=== PATIENT | female | born 1945 | race Caucasian/White ===

== ENCOUNTER 2020-03-25 09:54 | Outpatient (CLI) | payer MEDICARE, SELFPAY ==
[2020-03-25 11:09] LABS: Alanine Aminotransferase 24 U/L (14-59); Alkaline Phosphatase 40 U/L (46-116); Anion Gap 12.4 mmol/L (7-16); Aspartate Amino Transferase 21 U/L (15-37); Bilirubin,Total 0.6 mg/dL (0.00-1.00); Blood Urea Nitrogen 14 mg/dL (7-18); Calcium 9.1 mg/dL (8.5-10.1); Carbon Dioxide 26 mmol/L (21-32); Chloride 102 mmol/L (98-108); Cholesterol 200 mg/dL (0-200); Estimated Glomerular Filt Rate > 60; Glucose 87 mg/dL (70-99); HDL Direct 63 mg/dL (40-60); LDL Cholesterol Calculated 110 mg/dL (<130); Osmolality Calculated 281 mOsm/kg (285-295); Potassium 4.4 mmol/L (3.5-5.1); Sodium 136 mmol/L (136-145); Total Protein 7.4 g/dL (6.4-8.2); Triglycerides 135 mg/dL (0-150)
== END 2020-03-25 09:55 | disposition home or self-care (01) ==
PROVIDERS: PCP Internal Medicine; Visit Provider Internal Medicine Cardiovascular Disease
DX: E78.5 Hyperlipidemia, unspecified (principal)
CPT/HCPCS: 36415; 80053; 80061

== ENCOUNTER 2021-11-19 08:01 | Outpatient (CLI) | payer MEDICARE, SELFPAY ==
[2021-11-19 08:55] LABS: Alanine Aminotransferase 21 U/L (14-59); Alkaline Phosphatase 35 U/L (46-116); Anion Gap 13 mmol/L (8-16); Aspartate Amino Transferase 14 U/L (15-37); Bilirubin,Total 0.5 mg/dL (0.00-1.00); Blood Urea Nitrogen 18 mg/dL (7-18); Calcium 9.5 mg/dL (8.5-10.1); Carbon Dioxide 26 mmol/L (21-32); Chloride 103 mmol/L (98-108); Cholesterol 168 mg/dL (0-200); Estimated Glomerular Filt Rate > 60; Glucose 91 mg/dL (70-99); HDL Direct 66 mg/dL (40-60); LDL Cholesterol Calculated 86 mg/dL (<130); Osmolality Calculated 295 mOsm/kg (285-295); Potassium 4.5 mmol/L (3.5-5.1); Sodium 142 mmol/L (136-145); Total Protein 7.3 g/dL (6.4-8.2); Triglycerides 80 mg/dL (0-150)
== END 2021-11-19 08:02 | disposition home or self-care (01) ==
LOC: CHSLAB 08:04
PROVIDERS: PCP Internal Medicine; Visit Provider Internal Medicine Cardiovascular Disease
DX: E78.5 Hyperlipidemia, unspecified (principal)
CPT/HCPCS: 36415; 80053; 80061

== ENCOUNTER 2022-12-17 08:03 | Outpatient (CLI) | payer MEDICARE, SELFPAY ==
[2022-12-17 09:10] LABS: Alanine Aminotransferase 22 U/L (14-59); Alkaline Phosphatase 36 U/L (46-116); Anion Gap 10 mmol/L (8-16); Aspartate Amino Transferase 19 U/L (15-37); Bilirubin,Total 0.5 mg/dL (0.00-1.00); Blood Urea Nitrogen 11 mg/dL (7-18); Calcium 9.5 mg/dL (8.5-10.1); Carbon Dioxide 28 mmol/L (21-32); Chloride 107 mmol/L (98-108); Cholesterol 167 mg/dL (0-200); Estimated Glomerular Filt Rate > 60; Glucose 86 mg/dL (70-99); HDL Direct 66 mg/dL (40-60); LDL Cholesterol Calculated 82 mg/dL (<130); Osmolality Calculated 298 mOsm/kg (285-295); Potassium 4.4 mmol/L (3.5-5.1); Sodium 145 mmol/L (136-145); Total Protein 7.4 g/dL (6.4-8.2); Triglycerides 95 mg/dL (0-150)
== END 2022-12-17 08:04 | disposition home or self-care (01) ==
LOC: CHSLAB 08:04
PROVIDERS: PCP Internal Medicine; Visit Provider Internal Medicine Cardiovascular Disease
DX: E78.5 Hyperlipidemia, unspecified (principal)
CPT/HCPCS: 36415; 80053; 80061

== ENCOUNTER 2023-12-17 12:06 | Emergency (ER) | payer MEDICARE, SELFPAY ==
[2023-12-17] VITALS (9 sets, daily range): BP systolic 102–140; BP diastolic 60–73; PULSE 72–94; RESP 16–18; TEMP 37.2–37.4; O2SAT 96–98
--- NOTE | ~2023-12-17 | XR_ITS ---
EXAMINATION: XR chest 2V DATE: 12/17/2023 13:57 INDICATION: Weakness TECHNIQUE: frontal and lateral views of the chest were obtained. COMPARISON: None FINDINGS: The lungs are clear with no focal airspace opacities, pulmonary edema, pleural effusion or pneumothor ax. The cardiomediastinal silhouette is normal. Moderate thoracic spondylosis with mild anterior wedg ing of a few mid thoracic vertebral bodies. IMPRESSION: 1. No acute cardiopulmonary disease. Reviewed, dictated and finalized at location A.
--- NOTE | ~2023-12-17 | CT_ITS ---
EXAMINATION: CT brain wo con DATE: 12/17/2023 12:34 INDICATION: Weakness. Headache. TECHNIQUE: Computed tomography (CT) of the head was performed without intravenous contrast. The mA wa s adjusted according to patient size. Iterative reconstruction technique was employed. The dose-lengt h product was 605.33 mGy-cm. COMPARISON: None FINDINGS: There are scattered areas of low attenuation in the cerebral white matter. There is no intr acranial hemorrhage, acute infarction, or abnormal intracranial mass lesion. The ventricles are valentín l in size. There is mild mucosal thickening in the paranasal sinuses. The mastoid air cells are valentín l. IMPRESSION: 1. Extensive nonspecific cerebral white matter disease, which likely represents chronic small vessel ischemic disease. Reviewed, dictated and finalized at location A.
--- NOTE | 2023-12-17 12:10 | ECG_ITS ---
Measurements Intervals [place] Rate: 90 P: 73 GA: 140 QRS: 70 QRSD: 86 T: 75 QT: 363 QTc: 445 Interpretive Statements SINUS RHYTHM INCOMPLETE RIGHT BUNDLE BRANCH BLOCK NO PREVIOUS ECG AVAILABLE FOR COMPARISON Electronically Signed On 12-18-2023 13:16:13 CDT by Jesus Becker M.D.
--- NOTE | 2023-12-17 12:19 | ED.WEAKNESS ---
HPI - Weakness General Chief complaint: Weakness Stated complaint: weakness Time Seen by Provider: 12/17/23 12:09 Source: patient Mode of arrival: ambulatory Limitations: no limitations History of Present Illness HPI Narrative: patient is a 78-year-old female with generalized weakness for the past 2 weeks. She has also had worsening of some shortness of breath upon exertion. She has some dysuria. MD Complaint: generalized weakness Onset (ago): week(s) (2) Duration: constant and progressively worsening Location: generalized Migration: none Severity: moderate Severity scale (1-10): 5 Relieving factors: none Exacerbating factors: medication ( Patient also broke out with a rash on her forehead after starting new blood pressure medicine) and movement Context: new medication ( she stop the blood pressure medicine at this time 4 days ago) Associated symptoms: dysuria and shortness of breath Related Data Home Medications Medication Instructions Recorded Confirmed aspirin 81 mg tablet,delayed 81 mg PO DAILY 08/18/19 12/17/23 release (Adult Low Dose Aspirin) nitroglycerin 0.4 mg sublingual 0.4 mg sublingual Q5M PRN Chest 08/18/19 12/17/23 tablet Pain vitamin E (dl, acetate) 45 mg (100 100 unit PO DAILY 08/18/19 12/17/23 unit) capsule omega-3 fatty acids 1,000 mg 1,000 mg PO BID 08/21/19 12/17/23 capsule (Fish Oil Concentrate) Allergies Allergy/AdvReac Type Severity Reaction Status Date / Time No Known Drug Allergies Allergy Unknown Other Verified 12/17/23 12:08 Review of Systems Review of Systems: All systems reviewed & are unremarkable except as noted in HPI and below Constitutional: Constitutional: Reports no additional constitutional complaints Eyes: Eyes: Reports no additional eye complaints ENT: Reports system reviewed and no additional complaints, except as documented Cardiovascular: Cardiovascular: Reports no additional cardiovascular complaints Respiratory: Respiratory: Reports no additional respiratory complaints Gastrointestinal: Gastrointestinal: Reports no additional gastrointestinal complaints Genitourinary: Genitourinary: Reports no additional female genitourinary complaints Musculoskeletal: Musculoskeletal: Reports no additional musculoskeletal complaints Integumentary/Breasts: Skin/Breast: Reports system reviewed and no additional complaints, except as docu Neurologic: Reports system reviewed and no additional complaints, except as documented Psychiatric: Psychiatric: Reports no additional psychiatric complaints Endocrine: Endocrine: Reports no additional endocrine complaints Hematologic/Lymphatic: Hematologic/Lymphatic: Reports no additional hematologic/lymphatic complaints Allergic/Immunologic: Allergic/Immunologic: Reports no additional allergic/immunologic complaints [facility] Past Medical History Medical History CAD in [place] artery Dyslipidemia Essential hypertension Surgical History Surgical History H/O cardiac catheterization H/O: hysterectomy History of bunionectomy Hx of cholecystectomy Family History Family History Father Hypertension Family history of cardiovascular disease Family history of malignant neoplasm Mother Hypertension Family history of cardiovascular disease Family history of malignant neoplasm Social History Social History Smoking status: Never smoker Alcohol intake: current Exam Const: General: healthy appearing Nutritional Appearance: well nourished Orientation/consciousness: patient oriented x3 HENMT: Head: normal to inspection Ears: external ears normal Face/Nose/Sinus: Normal external nose present Eyes: Conjunctivae: conjunctivae normal Pupils: Equal, round and reactive pupils present EOM: EOMs intact b
--- NOTE | 2023-12-17 12:41 | PC.NURSE ---
ERP at bedside for initial assessment
[2023-12-17 13:12] LABS: Basophils Absolute Auto 0.03 K/mm3 (0.00-0.10); Basophils Percent Auto 0.2 % (0.0-1.0); Hematocrit 31.1 % (35.0-42.0); Hemoglobin 10.6 g/dL (11.7-13.8); Immature Granulocyte Percent A 0.8 % (0.0-0.0); Lymphocytes Absolute Auto 1.21 K/mm3 (1.10-4.50); Lymphocytes Percent Auto 9.6 % (18.0-42.0); Mean Corpuscular HGB Conc 34.1 g/dL (32-36); Mean Corpuscular Hemoglobin 30.8 pg (27.0-31.0); Mean Corpuscular Volume 90.4 fL (78.0-102.0); Mean Platelet Volume 8.8 fl (9.2-11.8); Monocytes Absolute Auto 1.23 K/mm3 (0.10-0.90); Monocytes Percent Auto 9.7 % (2.0-11.0); Neutrophils Absolute Auto 10.09 K/mm3 (1.70-7.20); Neutrophils Percent Auto 79.7 % (50.0-70.0); Platelet Count Result 444 K/mm3 (150-420); Red Blood Count 3.44 M/mm3 (4.20-5.40); Red Cell Distribution Width 13.4 % (11.6-14.4); White Blood Count 12.7 K/mm3 (4.8-10.8)
[2023-12-17 13:34] LABS: Lactic Acid Reflex 1.1 mmol/L (0.4-2.0)
--- NOTE | 2023-12-17 13:37 | PC.NURSE ---
Patient taken down to bathroom, patient unable to urinate at this time. provided two glasses of water. will try again in a few minutes.
[2023-12-17 13:39] LABS: Alanine Aminotransferase 11 U/L (14-59); Albumin Level 2.9 g/dL (3.4-5.0); Alkaline Phosphatase 40 U/L (46-116); Anion Gap 14 mmol/L (4-12); Aspartate Amino Transferase 23 U/L (15-37); Bilirubin,Total 0.4 mg/dL (0.00-1.00); Blood Urea Nitrogen 14 mg/dL (7-18); Calcium 8.9 mg/dL (8.5-10.1); Carbon Dioxide 22 mmol/L (21-32); Chloride 93 mmol/L (98-108); Estimated CRCL calculation 44 ml/min; Estimated Glomerular Filt Rate > 60; Glucose 103 mg/dL (70-99); Magnesium 1.9 mg/dL (1.8-2.4); NT Pro B Type Natriuretic Pept 1551 pg/mL (0-450); Osmolality Calculated 268 mOsm/kg (285-295); Potassium 3.9 mmol/L (3.5-5.1); Sodium 129 mmol/L (136-145); Thyroid Stimulating Hormone 0.38 uIU/mL (0.36-3.74); Total Protein 7.4 g/dL (6.4-8.2); Troponin I 12.9 ng/L (0.00-60.4)
--- NOTE | 2023-12-17 14:28 | PC.NURSE ---
Patient taken to bathroom, urine obtained at this time and taken to lab.
[2023-12-17 14:30] LABS: Bilirubin Urine Negative (Negative); Blood Urine 1+ (Negative); Color Urine Yellow (Yellow); Glucose Urine UA Negative (Negative); Ketones Urine Negative (Negative); Leukocyte Esterase Ur 1+ LEU/UL (Negative); Nitrate Urine Positive (Negative); Protein Urine 1+ (Negative); Specific Grav Ur 1.025 (1.010-1.020); Urobilinogen Urine 0.2 mg/dL (0.2-1.0)
[2023-12-17 14:41] LABS: Add Urine Microscopic? YES; Appearance Urine Cloudy (Clear); Squamous Epithelial Cell Urine Few /hpf (Few)
[2023-12-17 14:42] LABS: Bacteria Urine 4+ /hpf
--- NOTE | 2023-12-17 15:00 | PC.NURSE ---
discharge on hold for chest xray results. Radiology states that there is an issue getting the scan to cross over to radiologist. they are aware of the situation.
[2023-12-17] MEDS: CIPROFLOXACIN 500 MG TAB PO (15:11)
--- NOTE | 2023-12-20 13:00 | PC.NURSE ---
FINAL URINE CULTURE REPORT; Patient discharged on cipro, culture susceptible, no change in treatment or further action needed.
== END 2023-12-17 15:54 | disposition home or self-care (01) ==
PROVIDERS: Emergency Provider Emergency Medicine; PCP Internal Medicine
DX: N39.0 Urinary tract infection, site not specified (principal); R53.1 Weakness; R21 Rash and other nonspecific skin eruption; I25.10 Atherosclerotic heart disease of native coronary artery without angina pectoris; I10 Essential (primary) hypertension; E78.5 Hyperlipidemia, unspecified; Z79.82 Long term (current) use of aspirin
CPT/HCPCS: 36415; 70450; 71046; 80053; 81001; 83605; 83735; 83880; 84443; 84484; 85025; 87077; 87086; 87088; 87186; 93005; 99284; A9270

== ENCOUNTER 2023-12-22 15:08 | Emergency (ER) | payer MEDICARE, SELFPAY ==
[2023-12-22] VITALS (41 sets, daily range): BP systolic 130–168; BP diastolic 69–92; PULSE 14–88; RESP 14–79; TEMP 36.2–36.9; O2SAT 96–99
--- NOTE | ~2023-12-22 | XR_ITS ---
EXAMINATION: XR chest 1V portable 12/22/2023 16:13 INDICATION: Weakness. Loss of appetite. PROCEDURE: AP portable chest COMPARISON: No prior studies for comparison. FINDINGS: The lungs are clear. The cardiomediastinal silhouette is within normal limits. There are no pleural effusions. There is no pneumothorax suspected. IMPRESSION: 1: NO ACUTE CARDIOPULMONARY DISEASE. Reviewed, dictated and finalized at location A.
--- NOTE | ~2023-12-22 | XR_ITS ---
XR abdomen/kub 1V 12/22/2023 16:13 INDICATION: Constipation TECHNIQUE: KUB COMPARISON: None FINDINGS: Bowel gas pattern is normal. Moderate colonic fecal loading. There are pelvic phleboliths. There are cholecystectomy clips. There is no evidence of free air, mass, organomegaly, ascites or obs truction. No abnormal calculi are seen. The bones appear intact. Moderate lumbar spondylosis. IMPRESSION: 1: No acute abdominal abnormality identified. Reviewed, dictated and finalized at location A.
--- NOTE | ~2023-12-22 | CT_ITS ---
EXAMINATION: CT chest abdomen pelvis wo con DATE: 12/22/2023 17:27 CDT INDICATION: Generalized weakness. Elevated white blood cell count. TECHNIQUE: Computed tomography (CT) of the chest, abdomen, and pelvis was performed without intraveno us contrast. The dose-length product was 440.12 mGy-cm. Automated exposure control and iterative taniya nstruction technique were employed. COMPARISON: None FINDINGS: CHEST CT: Heart size normal. No thoracic lymphadenopathy. Mild atherosclerosis. No significant pleural or peric ardial effusion. There are a few small calcified granulomas of the lungs. There are additional noncal cified pulmonary nodules measuring 3 mm or less, likely benign. No endobronchial lesions. There is le ft lower lobe atelectasis/scarring. No focal pneumonia. No endobronchial lesions. No pneumothorax. ABDOMEN/PELVIS CT: Status post cholecystectomy. The spleen, pancreas, adrenal glands and kidneys are unremarkable. No hy dronephrosis. Nonobstructive bowel gas pattern. Status post cholecystectomy. Mild bladder wall thicke sarah. There is subtle infiltration of the anterior perivesical fat. Consider cystitis in the appropri ate clinical setting. Mild lower thoracic and lumbar spondylosis. No acute osseous abnormality. IMPRESSION: 1. Mild bladder wall thickening with subtle fatty infiltration of the anterior perivesical fat. Clini lucretia correlate for cystitis. Reviewed, dictated and finalized at location A. IMPRESSION: 1. Mild bladder wall thickening with subtle fatty infiltration of the anterior perivesical fat. Clinically correlate for cystitis.
--- NOTE | ~2023-12-22 | CT_ITS ---
EXAMINATION: CT cervical spine wo con DATE: 12/22/2023 16:13 INDICATION: Head injury. TECHNIQUE: Computed tomography (CT) of the cervical spine was performed without intravenous contrast. Automated exposure control and iterative reconstruction technique were employed. The dose-length pro duct was 208.52 mGy-cm. COMPARISON: None FINDINGS: There is mild scarring at the lung apices. Bone alignment is normal. Vertebral body heights are normal. There is severely decreased disc height at C3-C4, moderately decreased disc height at C4 -C5, and severely decreased disc height at C5-C6 and C6-C7. The following disc levels are specificall y discussed: C2-C3: There is no uncovertebral joint osteoarthritis. There is severe right and moderate left facet joint osteoarthritis. There is mild right neural foraminal stenosis. There is no central canal stenos is. C3-C4: There is severe bilateral uncovertebral joint osteoarthritis. There is severe right and modera te left facet joint osteoarthritis. There is moderate right and mild left neural foraminal stenosis. There is mild central canal stenosis. C4-C5: There is ankylosis of the uncovertebral joints with mild hypertrophy. There is ankylosis of th e facet joints with severe hypertrophy. There is mild right neural foraminal stenosis. There is no ce ntral canal stenosis. C5-C6: There is severe bilateral uncovertebral joint osteoarthritis. There is severe bilateral facet joint osteoarthritis. There is mild bilateral neural foraminal stenosis. There is mild central canal stenosis. C6-C7: There is severe bilateral uncovertebral joint osteoarthritis. There is moderate right and porsha re left facet joint osteoarthritis. There is mild bilateral neural foraminal stenosis. There is mild central canal stenosis. C7-T1: There is no uncovertebral joint osteoarthritis. There is severe bilateral facet joint osteoart hritis. There is mild bilateral neural foraminal stenosis. There is no central canal stenosis. IMPRESSION: 1. No fracture. 2. Severe cervical spondylosis. Reviewed, dictated and finalized at location A.
--- NOTE | ~2023-12-22 | CT_ITS ---
EXAMINATION: CT brain wo con DATE: 12/22/2023 16:13 INDICATION: Head injury. TECHNIQUE: Computed tomography (CT) of the head was performed without intravenous contrast. The mA wa s adjusted according to patient size. Iterative reconstruction technique was employed. The dose-lengt h product was 605.33 mGy-cm. COMPARISON: Head CT 12/17/2023 FINDINGS: There are scattered areas of low attenuation in the cerebral white matter. There is no intr acranial hemorrhage, acute infarction, or abnormal intracranial mass lesion. The ventricles are valentín l in size. There are likely changes of ocular lens replacement surgeries. There is mild mucosal thick ening in the paranasal sinuses. The mastoid air cells are normal. IMPRESSION: 1. Stable extensive nonspecific cerebral white matter disease, which likely represents chronic small vessel ischemic disease. Reviewed, dictated and finalized at location A. IMPRESSION: 1. Stable extensive nonspecific cerebral white matter disease, which likely rep resents chronic small vessel ischemic disease.
--- NOTE | 2023-12-22 15:19 | ED.WEAKNESS ---
HPI - Weakness General Chief complaint: Weakness Stated complaint: weakness Time Seen by Provider: 12/22/23 15:14 Source: patient Mode of arrival: ambulatory Limitations: no limitations History of Present Illness HPI Narrative: 78-year-old female with a history of hypertension, dyslipidemia coronary artery disease status post multiple stents on February of 2018, EF of 50% with diastolic dysfunction presented to the ER on 12/17/1999 24 for generalized weakness and urinary tract infection. She was noted urinary tract infection and treated with Cipro. In addition her labs revealed hyponatremia with a sodium of 129 and anemia. The patient presents today with -- ongoing weakness which she has had for the past 3 weeks. The patient is unable to ambulate. -- On 12/17/2023 the patient stood up and fell down secondary to weakness. In the process she hit her head. No loss of consciousness. No obvious injuries noted. -- Constipation for the past 5 days. No abdominal pain. No nausea /vomiting. -- shortness of breath on exertion -- body aches No chest pain MD Complaint: generalized weakness Onset (ago): week(s) ( 3 weeks) Duration: constant Location: generalized Migration: none Severity: moderate Relieving factors: none Exacerbating factors: none Context: new medication Associated symptoms: denies other symptoms, headaches and shortness of breath Related Data Home Medications Medication Instructions Recorded Confirmed aspirin 81 mg tablet,delayed 81 mg PO DAILY 08/18/19 12/22/23 release (Adult Low Dose Aspirin) vitamin E (dl, acetate) 45 mg (100 100 unit PO DAILY 08/18/19 12/22/23 unit) capsule omega-3 fatty acids 1,000 mg 1,000 mg PO BID 08/21/19 12/22/23 capsule (Fish Oil Concentrate) Allergies Allergy/AdvReac Type Severity Reaction Status Date / Time No Known Drug Allergies Allergy Unknown Other Verified 12/22/23 15:23 Review of Systems Review of Systems: All systems reviewed & are unremarkable except as noted in HPI and below Constitutional: Constitutional: Reports as per HPI and Reports no additional constitutional complaints Eyes: Eyes: Reports as per HPI and Reports no additional eye complaints ENT: Reports system reviewed and no additional complaints, except as documented and Reports as per HPI Cardiovascular: Cardiovascular: Reports as per HPI and Reports no additional cardiovascular complaints Respiratory: Respiratory: Reports as per HPI, Reports no additional respiratory complaints and Reports dyspnea Gastrointestinal: Gastrointestinal: Reports as per HPI and Reports no additional gastrointestinal complaints Genitourinary: Genitourinary: Reports no additional female genitourinary complaints and Reports as per HPI Musculoskeletal: Musculoskeletal: Reports as per HPI, Reports back pain and Reports myalgias Integumentary/Breasts: Skin/Breast: Reports system reviewed and no additional complaints, except as docu and Reports as per HPI Neurologic: Reports system reviewed and no additional complaints, except as documented and Reports as per HPI Psychiatric: Psychiatric: Reports no additional psychiatric complaints and Reports as per HPI Endocrine: Endocrine: Reports no additional endocrine complaints and Reports as per HPI Hematologic/Lymphatic: Hematologic/Lymphatic: Reports no additional hematologic/lymphatic complaints and Reports as per HPI Allergic/Immunologic: Allergic/Immunologic: Reports no additional allergic/immunologic complaints and Reports as per HPI PMFSH Past Medical History Medical History CAD in [place] artery Dyslipidemia Essential hypertension Surgical History Surgical History H/O cardiac catheterization H/O: hysterectomy History of bunionectomy Hx of cholecystectomy Family History Family History Father Hy
--- NOTE | 2023-12-22 15:48 | ECG_ITS ---
Measurements Intervals [place] Rate: 72 P: 75 WI: 142 QRS: 64 QRSD: 89 T: 77 QT: 409 Avg RR 832 QTc: 433 QTcB 448 QTcF 434 Interpretive Statements SINUS RHYTHM NORMAL ECG SEE SCANNED COPY FOR SIGNATURE MTDD
[2023-12-22 15:55] LABS: Hematocrit 27.9 % (35.0-42.0); Hemoglobin 9.6 g/dL (11.7-13.8); Immature Platelet Fraction Pct 0.9 % (1.0-7.0); Mean Corpuscular HGB Conc 34.4 g/dL (32-36); Mean Corpuscular Hemoglobin 30.5 pg (27.0-31.0); Mean Corpuscular Volume 88.6 fL (78.0-102.0); Mean Platelet Volume 8.5 fl (9.2-11.8); Platelet Count Result 594 K/mm3 (150-420); Red Blood Count 3.15 M/mm3 (4.20-5.40); Red Cell Distribution Width 13.2 % (11.6-14.4)
[2023-12-22 16:09] LABS: INR 1.4; Partial Thromboplastin Time 35.9 Sec (23.9-30.70); Prothrombin Time 15.2 Seconds (9.50-12.1)
[2023-12-22 16:20] LABS: Alanine Aminotransferase 131 U/L (14-59); Albumin Level 2.4 g/dL (3.4-5.0); Alkaline Phosphatase 105 U/L (46-116); Anion Gap 13 mmol/L (4-12); Aspartate Amino Transferase 72 U/L (15-37); Bilirubin,Total 0.5 mg/dL (0.00-1.00); Blood Urea Nitrogen 56 mg/dL (7-18); Calcium 8.7 mg/dL (8.5-10.1); Carbon Dioxide 22 mmol/L (21-32); Chloride 87 mmol/L (98-108); Creatine Kinase 79 U/L (26-192); Estimated CRCL calculation 9 ml/min; Estimated Glomerular Filt Rate 11; Glucose 102 mg/dL (70-99); Lipase 184 U/L (16-77); NT Pro B Type Natriuretic Pept 1760 pg/mL (0-450); Osmolality Calculated 269 mOsm/kg (285-295); Potassium 4.8 mmol/L (3.5-5.1); Sodium 122 mmol/L (136-145); Thyroid Stimulating Hormone 0.59 uIU/mL (0.36-3.74); Total Protein 6.9 g/dL (6.4-8.2); Troponin I 5.4 ng/L (0.00-60.4)
[2023-12-22 16:32] LABS: Band Neutrophils Percent 1 % (0-6); Basophils Percent Manual 0 % (0-1); Eosinophils Percent Manual 0 % (1-6); Lymphocytes Absolute Manual 1.05 K/mm3 (1.1-4.5); Lymphocytes Percent Manual 5 % (18-44); Monocytes Absolute Manual 0.84 K/mm3 (0.1-0.90); Monocytes Percent Manual 4 % (3-9); Neutrophils Absolute Manual 19.11 K/mm3 (1.7-7.2); Neutrophils Percent Manual 90 % (46-73); Platelet Estimate Increased (Adequate); Total Cells Counted 100
[2023-12-22] MEDS: SODIUM CHLORIDE 0.9% IV 1,000 ML 999 ML IV CONT ×2 (16:51→17:51)
[2023-12-22 18:29] LABS: SARS-CoV-2 RNA PCR Negative (Negative)
[2023-12-22 18:31] LABS: Influenza A QL RT-PCR Negative (Negative); Influenza B QL RT-PCR Negative (Negative); RSV RNA, RT-PCR Negative (Negative)
--- NOTE | 2023-12-22 19:05 | PC.NURSE ---
patient report received from WALTER Velasco for continuity of care for hourly shift.
[2023-12-22 19:20] LABS: Anion Gap 11 mmol/L (4-12); Blood Urea Nitrogen 56 mg/dL (7-18); Calcium 7.8 mg/dL (8.5-10.1); Carbon Dioxide 20 mmol/L (21-32); Chloride 93 mmol/L (98-108); Estimated CRCL calculation 9 ml/min; Estimated Glomerular Filt Rate 12; Glucose 107 mg/dL (70-99); Osmolality Calculated 273 mOsm/kg (285-295); Potassium 4.1 mmol/L (3.5-5.1); Sodium 124 mmol/L (136-145)
--- NOTE | 2023-12-22 19:26 | PC.NURSE ---
patient assisted onto bedpan. RN monitoring. patient denies pain.
--- NOTE | 2023-12-22 19:56 | PC.NURSE ---
update provided regarding plan for transfer to higher level of care for nephrology as patient having acute renal failure. awaiting bed assignment. IV antibiotic albertina. RN monitoring.
[2023-12-22 20:10] LABS: Appearance Urine Clear (Clear); Bilirubin Urine Negative (Negative); Blood Urine Negative (Negative); Color Urine Light Yellow (Yellow); Glucose Urine UA Negative (Negative); Ketones Urine Negative (Negative); Leukocyte Esterase Ur Trace LEU/UL (Negative); Nitrate Urine Negative (Negative); Protein Urine Negative (Negative); Urobilinogen Urine 0.2 mg/dL (0.2-1.0); pH Urine 5.5 (5.0-8.0)
[2023-12-22 20:16] LABS: Add Urine Microscopic? YES; Bacteria Urine Trace /hpf; RBC Urine None seen /hpf (0-2); Squamous Epithelial Cell Urine Rare /hpf (Few); WBC Urine None seen /hpf (0-3)
--- NOTE | 2023-12-23 12:42 | PC.NURSE ---
Preliminary blood cultures reviewed x2. No growth to date. No change to tx plan
--- NOTE | 2023-12-28 13:04 | PC.NURSE ---
final blood cultures x2 reviewed. no growth after 5 days. no change in plan of care.
== END 2023-12-22 21:00 | disposition short-term general hospital (02) ==
PROVIDERS: Emergency Provider Internal Medicine Critical Care Medicine; PCP Internal Medicine
DX: N17.9 Acute kidney failure, unspecified (principal); E87.1 Hypo-osmolality and hyponatremia; D64.9 Anemia, unspecified; R79.89 Other specified abnormal findings of blood chemistry; I11.9 Hypertensive heart disease without heart failure; E78.5 Hyperlipidemia, unspecified; I25.10 Atherosclerotic heart disease of native coronary artery without angina pectoris; Z95.5 Presence of coronary angioplasty implant and graft; K59.00 Constipation, unspecified; R06.02 Shortness of breath; Z79.82 Long term (current) use of aspirin; Z20.822 Contact with and (suspected) exposure to COVID-19
CPT/HCPCS: 36415; 70450; 71045; 71250; 72125; 74018; 74176; 80048; 80053; 81001; 82550; 83605; 83690; 83880; 84443; 84484; 85025; 85055; 85610; 85730; 87040; 87637; 93005; 96361; 96365; 99285; J0696; J7030

== ENCOUNTER 2024-02-02 10:38 | Outpatient (CLI) | payer MEDICARE, SELFPAY ==
[2024-02-02 11:02] LABS: Basophils Absolute Auto 0.02 K/mm3 (0.00-0.10); Basophils Percent Auto 0.4 % (0.0-1.0); Eosinophils Absolute Auto 0.21 K/mm3 (0.02-0.50); Eosinophils Percent Auto 3.7 % (1.0-6.0); Hematocrit 31.4 % (35.0-42.0); Hemoglobin 9.8 g/dL (11.7-13.8); Immature Granulocyte Absolute 0.01 K/mm3 (0.00-0.00); Immature Granulocyte Percent A 0.2 % (0.0-0.0); Lymphocytes Absolute Auto 1.61 K/mm3 (1.10-4.50); Lymphocytes Percent Auto 28.6 % (18.0-42.0); Mean Corpuscular HGB Conc 31.2 g/dL (32-36); Mean Corpuscular Hemoglobin 30.2 pg (27.0-31.0); Mean Corpuscular Volume 96.9 fL (78.0-102.0); Mean Platelet Volume 9.8 fl (9.2-11.8); Monocytes Absolute Auto 0.47 K/mm3 (0.10-0.90); Monocytes Percent Auto 8.3 % (2.0-11.0); Neutrophils Absolute Auto 3.31 K/mm3 (1.70-7.20); Neutrophils Percent Auto 58.8 % (50.0-70.0); Platelet Count Result 280 K/mm3 (150-420); Red Blood Count 3.24 M/mm3 (4.20-5.40); Red Cell Distribution Width 14.6 % (11.6-14.4); White Blood Count 5.6 K/mm3 (4.8-10.8)
[2024-02-02 11:31] LABS: Albumin Level 3.9 g/dL (3.4-5.0); Anion Gap 9 mmol/L (4-12); Blood Urea Nitrogen 11 mg/dL (7-18); Calcium 9.9 mg/dL (8.5-10.1); Carbon Dioxide 26 mmol/L (21-32); Chloride 104 mmol/L (98-108); Estimated Glomerular Filt Rate > 60; Glucose 87 mg/dL (70-99); Osmolality Calculated 286 mOsm/kg (285-295); Phosphorus 4.4 mg/dL (2.6-4.7); Potassium 4.6 mmol/L (3.5-5.1); Sodium 139 mmol/L (136-145)
[2024-02-02 11:37] LABS: Creatinine Urine 78.07 mg/dL (40-278); MALB Creatinine Ratio 76.7 mg/g (0-30); Microalbumin Urine Random 59.9 mg/L
== END 2024-02-02 10:39 | disposition home or self-care (01) ==
LOC: CHSLAB 10:43
PROVIDERS: PCP Internal Medicine
DX: N17.9 Acute kidney failure, unspecified (principal)
CPT/HCPCS: 36415; 80069; 82043; 85025

== ENCOUNTER 2024-07-14 08:32 | Outpatient (CLI) | payer MEDICARE, SELFPAY ==
[2024-07-14 08:59] LABS: Hematocrit 34.8 % (35.0-42.0); Hemoglobin 11.8 g/dL (11.7-13.8); Mean Corpuscular HGB Conc 33.9 g/dL (32-36); Mean Corpuscular Hemoglobin 32.4 pg (27.0-31.0); Mean Corpuscular Volume 95.6 fL (78.0-102.0); Mean Platelet Volume 9.2 fl (9.2-11.8); Platelet Count Result 269 K/mm3 (150-420); Red Blood Count 3.64 M/mm3 (4.20-5.40); Red Cell Distribution Width 12.6 % (11.6-14.4); White Blood Count 5.3 K/mm3 (4.8-10.8)
[2024-07-14 09:07] LABS: Creatinine Urine 54.58 mg/dL (40-278); MALB Creatinine Ratio 23.8 mg/g (0-30); Microalbumin Urine Random < 13.0 mg/L
[2024-07-14 09:51] LABS: Albumin Level 3.7 g/dL (3.4-5.0); Anion Gap 9 mmol/L (4-12); Blood Urea Nitrogen 14 mg/dL (7-18); Calcium 9.6 mg/dL (8.5-10.1); Carbon Dioxide 27 mmol/L (21-32); Chloride 106 mmol/L (98-108); Estimated Glomerular Filt Rate > 60; Glucose 83 mg/dL (70-99); Osmolality Calculated 293 mOsm/kg (285-295); Phosphorus 4.7 mg/dL (2.6-4.7); Potassium 4.8 mmol/L (3.5-5.1); Sodium 142 mmol/L (136-145)
== END 2024-07-14 08:33 | disposition home or self-care (01) ==
LOC: CHSLAB 08:37
PROVIDERS: PCP Internal Medicine
DX: N17.9 Acute kidney failure, unspecified (principal)
CPT/HCPCS: 36415; 80069; 82043; 85027

== ENCOUNTER 2024-07-26 10:14 | Outpatient (CLI) | payer MEDICARE, SELFPAY ==
[2024-07-26 11:09] LABS: Cholesterol 164 mg/dL (0-200); HDL Direct 70 mg/dL (40-60); LDL Cholesterol Calculated 77 mg/dL (<130); Triglycerides 86 mg/dL (0-150)
== END 2024-07-26 10:15 | disposition home or self-care (01) ==
LOC: CHSLAB 10:15
PROVIDERS: PCP Internal Medicine; Visit Provider Internal Medicine Cardiovascular Disease
DX: E78.5 Hyperlipidemia, unspecified (principal)
CPT/HCPCS: 36415; 80061

== ENCOUNTER 2025-07-04 08:40 | Outpatient (CLI) | payer MEDICARE, SELFPAY ==
[2025-07-04 08:59] LABS: Hematocrit 35.7 % (35.0-42.0); Hemoglobin 11.8 g/dL (11.7-13.8); Mean Corpuscular HGB Conc 33.1 g/dL (32-36); Mean Corpuscular Hemoglobin 31.4 pg (27.0-31.0); Mean Corpuscular Volume 94.9 fL (78.0-102.0); Platelet Count Result 291 K/mm3 (150-420); Red Blood Count 3.76 M/mm3 (4.20-5.40); White Blood Count 6.3 K/mm3 (4.8-10.8)
--- OUTSIDE RECORDS SUMMARY | 2025-07-04 09:15 | XMS_ITS | Clinical Summary ---
Author Organization [facility] Address [address] [place] [address] Care Team Providers Care Online Program Coordinator Name Role Phone Douglas Shafer MD Primary Care Provider [phone] Allergies No known active allergies Medications mupirocin (BACTROBAN) 2 % ointment Apply topically 2 (two) times daily as needed. Active desonide (DESOWEN) 0.05 % cream Apply topically 2 (two) times daily as needed. Active hydrALAZINE (APRESOLINE) 50 MG tabletIndicatio ns:htn Take 1 tablet (50 mg total) by mouth 2 (two) times daily. Indications: htn Active aspirin EC (ECOTRIN) 81 MG tabletIndicatio ns:blood thinner Take 1 tablet by mouth daily. Indications: blood thinner Active vitamin E 100 UNIT capsuleIndicati ons:supplement Take 1 capsule by mouth daily. Indications: supplement Active [place]-3 Fatty Acids (OMEGA-3 PLUS) 1000 MG CapIndications: supplement Take 1 capsule by mouth 2 (two) times daily. Indications: supplement Active ezetimibe (ZETIA) 10 MG tabletIndicatio ns:hld Take 1 tablet by mouth daily. Indications: hld Active fenofibrate (TRICOR) 54 MG tabletIndicatio ns:HLD Take 1 tablet by mouth daily with breakfast. Indications: HLD 4 Active carvedilol (COREG) 25 MG tabletIndicatio ns:htn Take 1 tablet (25 mg total) by mouth 2 (two) times daily. 60 tablet 4 Active Active Problems Problem Noted Date Diagnosed Date PJ (acute kidney injury) 12/22/2023 Social History Tobacco Use Types Packs/Day Years Used Date Smoking Tobacco: Never Smokeless Tobacco: Never Tobacco Cessation:Counseling Given: Not Answered OASIS D0700: Social Isolation Answer Da te Recorded Frequency of experiencing loneliness or isolatio n Never 01/11/2024 OASIS A1250: Transportation Answer Date Recorded Lack of Transportation (Medical) No 01/11/2024 Lack of Transportation (Non-Medical) No 01/11/2024 Patient Unable or Declines to Respond No 01/11/2024 OASIS B1300: Health Literacy Answer Ayan e Recorded Frequency of needing help to read materials from doctor or pharmacy Never 01/11/2024 B1300 Health Literacy Answer Date Recor ded How often do you need to hav e someone help you when you read instructions, pamphlets, or other written material from your doctor or pharmacy? Never 12/22/2023 [facility] Utilities Answer Date Recorded In the past 12 months has [facility], gas, oil, or water [employer] threatened to shut off services in your home? No 12/22/2023 Humiliation, Afraid, Rape, and Kick questionnair e Answer Date Recorded Within the last year, have y ou been afraid of your partner or ex-partner? No 12/22/2023 Within the last year, have y ou been humiliated or emotionally abused in other ways by your partner or ex-partner? No Within the last year, have y ou been kicked, hit, slapped, or otherwise physically hurt by your partner or ex-partner? No 12/22/2023 Within the last year, have y ou been raped or forced to have any kind of sexual activity by your partner or ex-partner? No 12/22/2023 Social Connection and Isolation Panel Answer Date Recorded In a typical week, how many times do you talk on the phone with family, friends, or neighbors? More than three times a week 12/22/2023 How often do you get togethe r with friends or relatives? Three times a week 12/22/2023 How often do you attend [facility] or hindu services? 1 to 4 times per year 12/22/2023 Do you belong to any clubs o r organizations such as amish groups, unions, fraternal or athletic groups, or school groups? Yes 12/22/2023 How often do you attend meet ings of the clubs or organizations you belong to? More than 4 times per year 12/22/2023 Are you , , di vorced, , never , or living with a partner? 12/22/2023 AUDIT-C Answer Date Recorded Q1: How often do you have a drink containing alc ohol? 2-3 times a week 12/22/2023 Q2: How many drinks containi ng alcohol do you have on a typical day when you are drinking? 1 or 2 12/22/2023 Q3: How often do you have si x or more drinks on one occasion? Never 12/22/2023 Overall Financial Resource Strain (CARDIA) Answe r Date Recorded How hard is it for you to pa y for the very basics like food, housing, medical care, and heating? Not hard at all 12/22/2023 [facility] - Occupational Stress Questionnaire Answer Date Recorded Do you feel stress - tense, restless, nervous, or anxious, or unable to sleep at night because your mind is troubled all the time - these days? Not at all 12/22/2023 Hunger Vital Sign Answer Date Recorded Within the past 12 months, y ou worried that your food would run out before you got the money to buy more. Never true 12/22/19 24 Within the past 12 months, t he food you bought just didn't last and you didn't have money to get more. Never true 12/22/2023 PRAPARE - Transportation Answer Date Re corded In the past 12 months, has l ack of transportation kept you from medical appointments or from getting medications? No 12/12 In the past 12 months, has l ack of transportation kept you from meetings, work, or from getting things needed for daily living? No 12/22/2023 Housing Stability Vital Sign Answer Ayan e Recorded In the last 12 months, was t here a time when you were not able to pay the mortgage or rent on time? No 12/22/2023 In the past 12 months, how m any times have you moved where you were living? 1 12/22/2023 At any time in the past 12 m [facility], were you homeless or living in a senior care (including now)? No 12/22/2023 Comments Unknown Sex and Gender Information Value Date Recorded Sex Assigned at Not on file Legal Sex Female 7:08 PM CDT Gender Identity Not on file Sexual Orientation Not on file Last Filed Vital Signs Vital Sign Reading Time Taken Comments Blood Pressure 128/70 01/10/2024 10:46 AM CDT Pulse 80 01/10/2024 10:46 AM CDT Temperature 36.7 C (98.1 F) 01/10/2024 10:46 AM CDT Respiratory Rate 18 01/10/2024 10:46 AM CDT Oxygen Saturation 98% 01/04/2024 3:21 PM CDT room air Inhaled Oxygen Concentration - - Weight 69.2 kg (152 lb 9.6 oz) 12/22/2023 10:00 PM CDT Height 160 cm (5' 3) 12/22/2023 10:00 PM CDT Body Mass Index 27.03 12/22/2023 10:00 PM CDT Plan of Treatment Health Maintenance Due Date Last Done Comments DTaP, Tdap and Td Vaccines ( 1 - Tdap) 1963 Pneumococcal Vaccine: 50+ Ye ars (1 of 1 - PCV) 1994 Zoster Vaccines (1 of 2) 1994 Annual Medicare Wellness Visit 2009 Dexa Scan (General) 2009 RSV Immunization or 60+ Years (1 - 1-dose 75+ series) 2019 COVID-19 Vaccine ( - 2023-2 5 season) 2025 Influenza Adult (#1) 2025 Hepatitis A Vaccines Aged Out No long er eligible based on patient's age to complete this topic Meningococcal B Vaccine Aged Out No l onger eligible based on patient's age to complete this topic Meningococcal Vaccine Aged Out No rc moustapha eligible based on patient's age to complete this topic RSV Immunizations Under 20 Months Aged Out No longer eligible based on patient's age to complete this topic Insurance [employer] MEDICARE Advance Directives * Full Code (Latest Code Status on File) Date Activated Date Inactivated Comments 01/19/2024 2:17 PM * Full Code Date Activated Date Inactivated Comments 01/19/2024 6:20 AM 01/19/2024 2:16 PM * Full Code Date Activated Date Inactivated Comments 12/23/2023 3:10 AM 12/27/2023 3:24 PM Care Teams Online Program Coordinator Relationship Specialty Start Date End Date Douglas Shafer MD [address] [place] [id number] PCP - General INTERNAL MEDICINE 12/22/23
[2025-07-04 09:24] LABS: MALB Creatinine Ratio 20.2 mg/g (0-30)
[2025-07-04 09:42] LABS: Albumin Level 4.9 g/dL (3.5-5.1); Anion Gap 10 mmol/L (4-12); Blood Urea Nitrogen 11 mg/dL (7-17); Calcium 10.2 mg/dL (8.4-10.2); Carbon Dioxide 26 mmol/L (22-30); Chloride 102 mmol/L (98-107); Estimated Glomerular Filt Rate > 60; Glucose 88 mg/dL (65-110); Osmolality Calculated 284 mOsm/kg (285-295); Potassium 5.1 mmol/L (3.4-5.0); Sodium 138 mmol/L (137-145)
== END 2025-07-04 08:41 | disposition home or self-care (01) ==
LOC: CHSLAB 08:43
PROVIDERS: PCP Internal Medicine
DX: N17.9 Acute kidney failure, unspecified (principal)
CPT/HCPCS: 36415; 80069; 82043; 85027